=== PATIENT | female | born 1965 | race Asian ===

== ENCOUNTER 2019-07-19 15:01 | Emergency (ER) | payer OTHER ==
[~2019-07-19] VITALS: Ht 172.7 cm; Wt 63.5 kg
[2019-07-19 15:17] VITALS: BP_SYST 124
--- NOTE | 2019-07-19 15:57 | NUR ---
Patient to ER bed 08 to gown for evaluation. Side rails up. Report received from WENDY Quevedo
--- NOTE | 2019-07-19 16:07 | NUR ---
Patient complaining of left elbow pain progressively worsening x 3 weeks. Patient reports she hit her left elbow on a chair while at her workplace 3 weeks ago. Pain progressively worsened with numbness and tingling. Patient then traveled to [place] for vacation there she had an xray done. told her that she had a bone fragment pinching one of her nerves and she would need surgery. [place] returned [place] the [place] yesterday and called PMD instructed patient to come to the ED to further expedite surgery. Pain 5/10. Denies any pain medication. Radial and brachial pulses present. No other complaints/injuries per patient or as noted. Will continue to monitor.
--- NOTE | 2019-07-19 16:14 | NUR ---
ER at bedside examining patient.
[2019-07-19 16:27] VITALS: BP_SYST 118
--- NOTE | 2019-07-19 16:27 | NUR ---
Patient given written and verbal discharge instructions and verbalizes understanding. ER MD discussed with patient the results and treatment provided. Patient in stable condition. ID arm band removed. Rx of ibuprofen given. Patient educated on pain management and to follow up with PMD. Pain Scale 0/10 Opportunity for questions provided and answered. Medication side effect fact sheet provided.
== END 2019-07-19 16:27 | disposition home or self-care (01) ==
LOC: SED 15:01
DX: S52.122A Displaced fracture of head of left radius, initial encounter for closed fracture (principal)
CPT/HCPCS: 99283